=== PATIENT | male | born 1960 | race African-American/Black ===

== ENCOUNTER 2017-11-17 08:56 | Outpatient (RCR) | payer BC | END 2017-11-26 | LOC: OT 08:56 | PROVIDERS: ATTEND Surgery Surgery of the Hand | DX: M19.141 Post-traumatic osteoarthritis, right hand (principal); S63.8X1A Sprain of other part of right wrist and hand, initial encounter; M79.641 Pain in right hand; M25.641 Stiffness of right hand, not elsewhere classified; R51 Headache | CPT/HCPCS: 97010 ×3; 97110 ×4; 97165; L3808 ==

== ENCOUNTER 2017-12-15 07:57 | Outpatient (RCR) | payer BC | END 2017-12-26 | LOC: OT 07:57 | PROVIDERS: ATTEND Surgery Surgery of the Hand | DX: S63.8X1A Sprain of other part of right wrist and hand, initial encounter (principal); M19.141 Post-traumatic osteoarthritis, right hand | CPT/HCPCS: 97139 ==